=== PATIENT | male | born 1985 | race Caucasian/White ===

== ENCOUNTER 2018-01-20 18:02 | Emergency (ER) | payer SELFPAY ==
[2018-01-20 18:51] LABS: APPEARANCE,URINE CLEAR; BILIRUBIN,URINE NEGATIVE (NEGATIVE); COLOR,URINE YELLOW; GLUCOSE, URINE NEGATIVE (NEGATIVE); KETONES,URINE NEGATIVE (NEGATIVE); LEUKOCYTE ESTERASE,URINE NEGATIVE (NEGATIVE); NITRITE,URINE NEGATIVE (NEGATIVE); PROTEIN,URINE NEGATIVE (NEGATIVE); URINE SPECIFIC GRAVITY 1.024; UROBILINOGEN,URINE NEGATIVE mg/dL (<2.0)
[2018-01-20 19:05] LABS: URINE AMPHETAMINES SCREEN NEGATIVE; URINE BARBITURATES SCREEN NEGATIVE; URINE BENZODIAZEPINES SCREEN NEGATIVE; URINE COCAINE SCREEN NEGATIVE; URINE MARIJUANA (THC) SCREEN UNCONFIRMED POSITIVE; URINE METHADONE SCREEN NEGATIVE; URINE PHENCYCLIDINE SCREEN NEGATIVE
[2018-01-20 19:26] LABS: ABSOLUTE MONOCYTES (AUTO) 0.7 10^3/uL (0.1-1.4); ABSOLUTE NEUT (AUTO) 4.9 10^3/uL (1.7-8.2); BASOPHILS % (AUTO) 0.3 % (0-2); EOSINOPHILS % (AUTO) 0.3 % (0-6); HEMOGLOBIN 15.1 g/dL (13.5-17.0); LYMPHOCYTES % (AUTO) 25.7 % (13-45); MEAN CORPUSCULAR HEMOGLOBIN 32.8 pg (27.0-33.4); MEAN CORPUSCULAR HGB CONC 35.2 g/dL (32.0-36.0); MEAN CORPUSCULAR VOLUME 93 fl (80-97); MONOCYTES % (AUTO) 9.6 % (3-13); PLATELET COUNT 212 10^3/uL (150-450); RED BLOOD COUNT 4.62 10^6/uL (4.35-5.55); RED CELL DISTRIBUTION WIDTH 12.7 % (11.5-14.0); SEGMENTED NEUTROPHILS % (AUTO) 64.1 % (42-78); TOTAL CELLS COUNTED % (AUTO) 100 %; WHITE BLOOD COUNT 7.6 10^3/uL (4.0-10.5)
[2018-01-20 19:53] LABS: ALANINE AMINOTRANSFERASE 28 U/L (21-72); ALBUMIN 4.6 g/dL (3.5-5.0); ALKALINE PHOSPHATASE 64 U/L (38-126); ANION GAP 14 (5-19); ASPARTATE AMINO TRANSFERASE 15 U/L (17-59); BILIRUBIN,DIRECT 0.1 mg/dL (0.0-0.4); BILIRUBIN,TOTAL 0.7 mg/dL (0.2-1.3); BLOOD UREA NITROGEN 13 mg/dL (7-20); CALCIUM 9.5 mg/dL (8.4-10.2); CARBON DIOXIDE 24 mmol/L (22-30); CHLORIDE 105 mmol/L (98-107); GLUCOSE 98 mg/dL (75-110); POTASSIUM 3.9 mmol/L (3.6-5.0); SODIUM 143.3 mmol/L (137-145); TOTAL PROTEIN 7.3 g/dL (6.3-8.2)
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
[2018-01-20 19:55] LABS: ACETAMINOPHEN < 10 ug/mL (10-30); ALCOHOL < 10 mg/dL (NONE DETECTED); SALICYLATE < 1.0 mg/dL (2.0-20.0)
[2018-01-20] MEDS ORDERED: OLANZAPINE 5 MG TAB.RAPDIS PO ONE (21:33)
--- NOTE | 2018-01-21 07:18 | EKG REPORT ---
SEVERITY:- NORMAL ECG - SINUS RHYTHM : Confirmed by: Maury Galindo MD 21-Jan-2018 07:18:05
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
[2018-01-21] MEDS ORDERED: OLANZAPINE 5 MG TABLET PO ONE (12:11)
[2018-01-21] MEDS ORDERED: BENZTROPINE MESYLATE 1 MG TABLET PO ONE (12:12)
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
[2018-01-21 16:46] VITALS: BP 113/67
== END 2018-01-21 16:47 | disposition home or self-care (01) ==
LOC: ER 18:02
DX: R45.851 Suicidal ideations (principal); F41.9 Anxiety disorder, unspecified; Z63.0 Problems in relationship with spouse or partner; F17.200 Nicotine dependence, unspecified, uncomplicated; F12.10 Cannabis abuse, uncomplicated
CPT/HCPCS: 93005; 99285; 36415; 80307 ×4; 85025; 80053; 81001; 93010; J3490

== ENCOUNTER 2018-01-23 21:18 | Emergency (ER) | payer OTHER ==
[2018-01-23 22:32] LABS: ABSOLUTE BASOPHILS # (AUTO) 0.1 10^3/uL (0.0-0.2); ABSOLUTE EOSINOPHILS # (AUTO) 0.1 10^3/uL (0.0-0.6); ABSOLUTE LYMPHOCYTES (AUTO) 2.8 10^3/uL (0.5-4.7); ABSOLUTE NEUT (AUTO) 2.9 10^3/uL (1.7-8.2); BASOPHILS % (AUTO) 0.9 % (0-2); EOSINOPHILS % (AUTO) 0.9 % (0-6); HEMATOCRIT 41.1 % (37.9-51.0); HEMOGLOBIN 14.6 g/dL (13.5-17.0); LYMPHOCYTES % (AUTO) 41.1 % (13-45); MEAN CORPUSCULAR HEMOGLOBIN 32.9 pg (27.0-33.4); MEAN CORPUSCULAR HGB CONC 35.6 g/dL (32.0-36.0); MEAN CORPUSCULAR VOLUME 92 fl (80-97); MONOCYTES % (AUTO) 14.3 % (3-13); PLATELET COUNT 197 10^3/uL (150-450); RED BLOOD COUNT 4.45 10^6/uL (4.35-5.55); RED CELL DISTRIBUTION WIDTH 12.8 % (11.5-14.0); SEGMENTED NEUTROPHILS % (AUTO) 42.8 % (42-78); TOTAL CELLS COUNTED % (AUTO) 100 %; WHITE BLOOD COUNT 6.7 10^3/uL (4.0-10.5)
[2018-01-23 22:53] LABS: ALANINE AMINOTRANSFERASE 32 U/L (21-72); ALBUMIN 4.6 g/dL (3.5-5.0); ALKALINE PHOSPHATASE 60 U/L (38-126); ANION GAP 12 (5-19); ASPARTATE AMINO TRANSFERASE 47 U/L (17-59); BILIRUBIN,DIRECT 0.1 mg/dL (0.0-0.4); BILIRUBIN,TOTAL 0.9 mg/dL (0.2-1.3); BLOOD UREA NITROGEN 15 mg/dL (7-20); CALCIUM 9.7 mg/dL (8.4-10.2); CARBON DIOXIDE 26 mmol/L (22-30); CHLORIDE 107 mmol/L (98-107); GLUCOSE 91 mg/dL (75-110); POTASSIUM 4.5 mmol/L (3.6-5.0); SODIUM 144.6 mmol/L (137-145); TOTAL PROTEIN 7.1 g/dL (6.3-8.2)
[2018-01-23 22:54] LABS: ACETAMINOPHEN < 10 ug/mL (10-30); ALCOHOL < 10 mg/dL (NONE DETECTED); SALICYLATE < 1.0 mg/dL (2.0-20.0)
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
[2018-01-24] MEDS ORDERED: OLANZAPINE 5 MG TAB.RAPDIS PO ONE (10:03)
--- NOTE | 2018-01-24 11:13 | ER Document Report ---
Doctor's Note Notes: 01/24/18 11:04 Mr. Nguyễn is a 32-year-old man who presented for evaluation of difficult home situation. The plan is for this man to undergo discharge home as his significant other is no longer in his home. Because of this he will also need a week's prescription as his has them currently Zyprexa and Cogentin. We will plan for discharge as scheduled previously by the previous provider. He will be given a prescription for medication for 1 week. He was encouraged to return in case of worsening fears for safety or desires to self injure. 01/25/18 08:46 Discharge - Discharge Clinical Impression: Anxiety, Relationship dysfunction Condition: Stable Disposition: HOME, SELF-CARE Additional Instructions: Please return if you have thoughts of wanting to hurt yourself, hurt others, or have any other symptoms that are concerning to you. You were seen in the ED and evaluated by the Medical and Behavioral Health Teams for relationship discord and determined to be appropriate for discharge at this time. You are recommended to follow up with the local [facility] for continued assistance with therapy and medication management. Anxiety The physician feels that some of your health problems are being caused by anxiety. Anxiety affects your health in many ways. Anxiety alone can cause palpitations, sweats, chest pains, abdominal pains, shortness of breath, and headaches. It contributes to ulcer disease, high blood pressure, irritable bowel syndrome, and has been shown to cause flare-ups of many other diseases. Anxiety is not a simple disorder to treat. If the anxiety is due to recent life stresses, you may simply need time to "work through" the changes. If the anxiety is due to an underlying unhappiness with yourself or due to psychiatric disturbance, professional help will be needed. Your physician can refer you for further help if needed. Anti-anxiety medication is occasionally given if the stress is acute or if you are having trouble sleeping. Chronic or frequent use of these medications is not a good idea because the body becomes reliant on it, preventing you from dealing with life's normal stresses. Prescriptions: Benztropine Mesylate [Cogentin 1 mg Tablet] 1 mg PO DAILY #7 tablet Olanzapine [Zyprexa 5 mg Tablet] 5 mg PO Q12 #14 tablet
[2018-01-24 11:19] VITALS: BP 134/79
--- NOTE | 2018-01-26 18:23 | PSYCHOLOGICAL NOTE ---
Psych Note - Psych Note Psych Note: Reason for Consult: relationship dysfunction Patient states that he fears for his life because of what "his might tell other people about him". Patient admits that his relationship is in discord but that his has been out of the home for the last 3 days. There has been no new event within that last 24 hours of being previously assessed by the physician and Dr. Joel. Patient denied any plans of suicide, with no intent, plan or means. Patient is non-compliant with his medication, as he did not get his prescriptions filled from the last visit. Patient is alert and oriented to person, place, time and circumstance. Mood is Dysphoric. Patient has an organized and linear thought process. Eye Contact was maintained throughout the assessment. Conversational speech was within normal rate, tone and prosody. Intellectual abilities appear to be within the average range. Attention and concentration are good. Insight, judgment, impulse control are fair. Medication recommendations per [facility]'s contracted psychiatrist , Dr. Halle TUTTLE are as follows: Zyprexa 5mg twice daily Cogentin 1mg daily Diagnosis: 296.41 (F31.11) Bipolar I Disorder, Mild 301.83 (F60.3) Borderline Personality Impression/Plan: Patient is cleared from acute psychiatric services. Patient is not compliant with his medications from last visit. This Clinician provided resource list, as well as number to the local homeless long term. Patient confirmed that no new event had occurred during this hospitalization. Patient states that his has not been home for the last three days. This Clinician encouraged patient to follow up with his outpatient provider and to let them know about this visit.
== END 2018-01-24 11:35 | disposition home or self-care (01) ==
LOC: ER 21:18
DX: F41.9 Anxiety disorder, unspecified (principal); F12.10 Cannabis abuse, uncomplicated; Z63.0 Problems in relationship with spouse or partner; F32.9 Major depressive disorder, single episode, unspecified; Z79.899 Other long term (current) drug therapy
CPT/HCPCS: 99284; 36415; 80307 ×3; 85025; 80053; J3490

== ENCOUNTER 2019-02-20 00:39 | Emergency (ER) | payer OTHER ==
[2019-02-20 02:11] LABS: ABSOLUTE EOSINOPHILS # (AUTO) 0.1 10^3/uL (0.0-0.6); ABSOLUTE LYMPHOCYTES (AUTO) 3.5 10^3/uL (0.5-4.7); ABSOLUTE NEUT (AUTO) 4.9 10^3/uL (1.7-8.2); BASOPHILS % (AUTO) 0.4 % (0-2); EOSINOPHILS % (AUTO) 0.6 % (0-6); HEMATOCRIT 40.5 % (37.9-51.0); HEMOGLOBIN 14.5 g/dL (13.5-17.0); LYMPHOCYTES % (AUTO) 37.3 % (13-45); MEAN CORPUSCULAR HEMOGLOBIN 32.8 pg (27.0-33.4); MEAN CORPUSCULAR HGB CONC 35.8 g/dL (32.0-36.0); MEAN CORPUSCULAR VOLUME 92 fl (80-97); MONOCYTES % (AUTO) 10.6 % (3-13); PLATELET COUNT 196 10^3/uL (150-450); RED BLOOD COUNT 4.42 10^6/uL (4.35-5.55); RED CELL DISTRIBUTION WIDTH 12.7 % (11.5-14.0); SEGMENTED NEUTROPHILS % (AUTO) 51.1 % (42-78); TOTAL CELLS COUNTED % (AUTO) 100 %; WHITE BLOOD COUNT 9.5 10^3/uL (4.0-10.5)
[2019-02-20 02:18] LABS: ACETAMINOPHEN < 10 ug/mL (10-30); ALBUMIN 4.7 g/dL (3.5-5.0); ALCOHOL < 10 mg/dL (NONE DETECTED); ALKALINE PHOSPHATASE 61 U/L (38-126); ANION GAP 10 (5-19); ASPARTATE AMINO TRANSFERASE 20 U/L (17-59); BILIRUBIN,TOTAL 0.9 mg/dL (0.2-1.3); BLOOD UREA NITROGEN 13 mg/dL (7-20); CALCIUM 9.8 mg/dL (8.4-10.2); CARBON DIOXIDE 25 mmol/L (22-30); CHLORIDE 105 mmol/L (98-107); GLUCOSE 104 mg/dL (75-110); POTASSIUM 3.9 mmol/L (3.6-5.0); SALICYLATE < 1.0 mg/dL (2.0-20.0); TOTAL PROTEIN 7.1 g/dL (6.3-8.2)
--- NOTE | 2019-02-20 04:19 | ER Document Report ---
ED Psych Disorder / Suicide - General Chief Complaint: Psych Problem Stated Complaint: IVC Time Seen by Provider: 02/20/19 01:25 Information source: Patient, Law Enforcement Notes: 33-year-old male brought in by IVC from mobile crisis. Police brought the patient in. He was taken to [facility] earlier and they felt he was too acute to be seen in the right away. Patient is delusional. He thinks there is a conspiracy. He wants to report stuff to the [facility]. Patient has a history of PTSD denies ever being in a mental institution before. Denies suicidal ideation homicidal ideation at this time. He is having a hard time describing his difficulties tonight. Is very tangential speech. TRAVEL OUTSIDE OF THE [place] IN LAST 30 DAYS: No - Related Data Allergies/Adverse Reactions: No Known Allergies Allergy (Unverified 12/11/15 20:32) Past Medical History - Social History Smoking Status: Never Smoker Drug Abuse: Marijuana Lives with: Spouse/Significant other Family History: Reviewed & Not Pertinent Patient has suicidal ideation: No Patient has homicidal ideation: No Renal/ Medical History: Denies: Hx Peritoneal Dialysis Psychiatric Medical History: Reports: Hx Depression, Hx Post Traumatic Stress Disorder Review of Systems - Review of Systems Neurological/Psychological: Anxiety. denies: Hallucinations, Suicidal ideation -: Yes All other systems reviewed and negative Physical Exam - Vital signs Vitals: Temp Pulse Resp BP Pulse Ox 97.9 F 62 18 128/72 H 99 02/20/19 00:41 02/20/19 00:41 02/20/19 00:41 02/20/19 00:41 02/20/19 00:41 - Notes Notes: PHYSICAL EXAMINATION: GENERAL: Well-appearing, well-nourished and in no acute distress. HEAD: Atraumatic, normocephalic. EYES: Pupils equal round and reactive to light, extraocular movements intact, sclera anicteric, conjunctiva are normal. ENT: nares patent, oropharynx clear without exudates. Moist mucous membranes. NECK: Normal range of motion, supple without lymphadenopathy LUNGS: Breath sounds clear to auscultation bilaterally and equal. No wheezes rales or rhonchi. HEART: Regular rate and rhythm without murmurs ABDOMEN: Soft, nontender, normoactive bowel sounds. No guarding, no rebound. No masses appreciated. EXTREMITIES: Normal range of motion, no pitting or edema. No cyanosis. NEUROLOGICAL: No focal neurological deficits. Moves all extremities spontaneously and on command. PSYCH: Anxious affect. Flat. Rambling speech tangential speech having a hard time staying focused on the conversation. He is having paranoid thoughts. Denies SI or HI SKIN: Warm, Dry, normal turgor, no rashes or lesions noted. Course - Re-evaluation Re-evalutation: 02/20/19 04:16 Patient resting comfortably. He is sleeping. Labs been reviewed he is hemodynamically stable he is cleared for psychiatric evaluation and treatment. - Vital Signs Vital signs: Temp Pulse Resp BP Pulse Ox 97.9 F 67 20 121/72 100 02/20/19 02:00 02/20/19 02:00 02/20/19 02:00 02/20/19 02:00 02/20/19 02:00 - Laboratory Result Diagrams: 02/20/19 01:50 02/20/19 01:50 Laboratory results interpreted by me: 02/20/19 01:50 Salicylates < 1.0 L Acetaminophen < 10 L - EKG Interpretation by Dc EKG shows normal: Sinus rhythm Rate: Normal Rhythm: NSR Discharge - Discharge Clinical Impression: Psychosis Condition: Stable Disposition: PSYCH HOSP/UNIT
[2019-02-20 06:47] LABS: APPEARANCE,URINE CLEAR; BILIRUBIN,URINE NEGATIVE (NEGATIVE); COLOR,URINE YELLOW; GLUCOSE, URINE NEGATIVE (NEGATIVE); KETONES,URINE TRACE mg/dL (NEGATIVE); LEUKOCYTE ESTERASE,URINE NEGATIVE (NEGATIVE); NITRITE,URINE NEGATIVE (NEGATIVE); PROTEIN,URINE NEGATIVE (NEGATIVE)
[2019-02-20 07:02] LABS: URINE AMPHETAMINES SCREEN NEGATIVE; URINE BARBITURATES SCREEN NEGATIVE; URINE BENZODIAZEPINES SCREEN NEGATIVE; URINE COCAINE SCREEN NEGATIVE; URINE MARIJUANA (THC) SCREEN UNCONFIRMED POSITIVE; URINE METHADONE SCREEN NEGATIVE; URINE PHENCYCLIDINE SCREEN NEGATIVE
--- NOTE | 2019-02-20 09:24 | ER Document Report ---
Doctor's Note Notes: 02/20/19 09:24 33-year-old male with past medical history of PTSD who supposedly presented delusional. Vital signs and labs as recorded. Awaiting psychiatric evaluation and placement. They are [facility] Vital signs are stable.
[2019-02-20] MEDS: BENZTROPINE MESYLATE 1 MG TABLET PO SCH (12:49)
[2019-02-20] MEDS: OLANZAPINE 5 MG TABLET PO SCH ×2 (12:49→18:05)
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
--- NOTE | 2019-02-20 19:46 | EKG REPORT ---
SEVERITY:- NORMAL ECG - SINUS RHYTHM : Confirmed by: Jaylene Holt MD 20-Feb-2019 19:45:47
--- NOTE | 2019-02-21 09:18 | ER Document Report ---
Doctor's Note Notes: 02/21/19 09:17 Vital signs are stable. Labs as recorded. Patient is still having what appears to be roberto carlos/paranoid delusions. Zyprexa was started yesterday. Awaiting psychiatric disposition.
[2019-02-21] MEDS: OLANZAPINE 5 MG TABLET PO SCH ×2 (10:12→18:24)
[2019-02-21] MEDS: BENZTROPINE MESYLATE 1 MG TABLET PO SCH (10:12)
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
[2019-02-22] MEDS: BENZTROPINE MESYLATE 1 MG TABLET PO SCH (09:54)
[2019-02-22] MEDS: OLANZAPINE 5 MG TABLET PO SCH ×2 (09:54→17:12)
--- NOTE | 2019-02-22 13:13 | ER Document Report ---
Doctor's Note Notes: 02/22/19 13:08 Rounds: Chart reviewed and patient interviewed. Patient initially evaluated for delusions and paranoid feelings. History of PTSD. Also bipolar disorder. Vital signs are all normal. Labs are positive for marijuana. Patient is paranoid at this time and confrontational as well. Has written up along list of issues and upset that I am not going to take time to read them. Otherwise, patient appears to be medically stable for transfer or discharge. Mary Ellen Mora MD
--- NOTE | 2019-02-23 08:49 | PSYCHOLOGICAL NOTE ---
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 Today ED Physician reported patient became irritable and agitated with him to the extent of verbal aggression and it was felt the trigger was related to physician not wanting to hear about the delusion so patient saying it's likely because physician is involved in the conspiracy. Diagnosis: Psychosis Posttraumatic Stress Disorder by Hx Borderline Personality Disorder by Hx Impression/Plan: Recommendation to maintain IVC due to continued to delusions that reportedly resurfaced a few days ago after 4-5 years. Today he presented irritable and agitated, was verbally aggressive toward ED Physician for not listening to story/delusion and said physician didn't want to listen because he might be involved in the conspiracy. Consulted with Dr. Joel regarding the management and care of patient. ED physician in agreement with recommendations.
[2019-02-23] MEDS: OLANZAPINE 5 MG TABLET PO SCH ×2 (09:15→18:04)
[2019-02-23] MEDS: BENZTROPINE MESYLATE 1 MG TABLET PO SCH (09:15)
--- NOTE | 2019-02-23 14:37 | PSYCHOLOGICAL NOTE ---
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 Patient eats meals when provided, takes medications when administered, he declined shower this AM. He remained in room in bed. Diagnosis: Psychosis Posttraumatic Stress Disorder by Hx Borderline Personality Disorder by Hx Impression/Plan: Recommendation to maintain IVC due to continued to delusions that reportedly resurfaced a few days ago after 4-5 years. Today he continued to be paranoid and delusional but remained in his room. Consulted with Dr. Joel regarding the management and care of patient. ED physician in agreement with recommendations.
--- NOTE | 2019-02-23 19:19 | ER Document Report ---
Doctor's Note Notes: 02/23/19 19:19 Rounds: Chart reviewed and patient interviewed. Not really much difference from yesterday. Still withdrawn and paranoid. Vital signs are all normal. Patient appears to be medically stable for transfer or discharge. Mary Ellen Mora MD
[2019-02-24] MEDS: OLANZAPINE 5 MG TABLET PO SCH ×2 (10:54→19:27)
[2019-02-24] MEDS: BENZTROPINE MESYLATE 1 MG TABLET PO SCH ×2 (10:54→19:26)
--- NOTE | 2019-02-24 11:00 | ER Document Report ---
Doctor's Note Notes: 02/24/19 10:59 Patient continues to have tangential thought process. Multiple medications change including adding Thorazine 50 mg twice daily, increasing Cogentin dose, confirm current Zyprexa dosing twice daily. Patient will remain IVC looking for placement.
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
[2019-02-24] MEDS: CHLORPROMAZINE HCL 50 MG TABLET PO SCH (19:27)
[2019-02-25] MEDS: BENZTROPINE MESYLATE 1 MG TABLET PO SCH ×2 (09:49→18:52)
[2019-02-25] MEDS: OLANZAPINE 5 MG TABLET PO SCH ×2 (09:49→19:32)
[2019-02-25] MEDS: CHLORPROMAZINE HCL 50 MG TABLET PO SCH ×2 (09:49→19:32)
--- NOTE | 2019-02-25 10:57 | ER Document Report ---
Doctor's Note Notes: 02/25/19 10:56 I have evaluated this pt. and he has no c/o at this time. He feels all of his needs are being met and his physical exam is normal. He is awaiting disposition per mental health.
--- NOTE | 2019-02-25 16:58 | PSYCHOLOGICAL NOTE ---
Psych Note - Psych Note Date seen by psych provider: 02/25/19 Psych Note: Updated medication recommendations per [facility] contracted psychiatrist Dr. Halle TUTTLE are as follows Discontinue Thorazine and Zyprexa Decrease Cogentin to 1 mg daily Please start Haldol 5 mg twice daily BuSpar 5 mg every morning 10 mg nightly risperidone 0.25 mg twice daily Diagnosis 295.70 (F25.0) schizoaffective disorder bipolar [facility] 309.81 (F43.10) posttraumatic stress disorder [facility] Cluster B personality traits are noted Impression\plan: Patient is recommended for continued IVC. Patient continues to is clearly demonstrating significant paranoia connected to his delusions. Patient's discloses that the patient had confided in him his delusions however it quickly spiraled out of control resulting in the patient then starting to believe that his was part of his delusion and threatened to kill him or himself if his did not leave the home. Updated medication recommendations have been provided. Patient will be reevaluated. Dr. Joel was consulted to care management of this patient; attending physicians in agreement with recommendations and disposition.
[2019-02-25] MEDS: BUSPIRONE HCL 10 MG TABLET PO SCH (19:04)
[2019-02-25] MEDS: HALOPERIDOL 5 MG TABLET PO SCH (19:04)
[2019-02-25] MEDS: RISPERIDONE 0.25 MG TABLET PO SCH (19:04)
[2019-02-26] MEDS: HALOPERIDOL 5 MG TABLET PO SCH ×2 (07:24→20:08)
[2019-02-26] MEDS: BUSPIRONE HCL 10 MG TABLET PO SCH ×2 (07:24→20:08)
[2019-02-26] MEDS: RISPERIDONE 0.25 MG TABLET PO SCH ×2 (07:24→20:08)
[2019-02-26] MEDS: BENZTROPINE MESYLATE 1 MG TABLET PO SCH (10:24)
--- NOTE | 2019-02-26 11:04 | ER Document Report ---
Doctor's Note Notes: 02/26/19 11:03 I have evaluated this pt. this am and he has no c/o at this time. He feels all of his needs are being met and his physical exam is normal. He is awaiting disposition per mental health.
[2019-02-27] MEDS: RISPERIDONE 0.25 MG TABLET PO SCH (08:24)
[2019-02-27] MEDS: HALOPERIDOL 5 MG TABLET PO SCH (08:25)
[2019-02-27] MEDS: BUSPIRONE HCL 10 MG TABLET PO SCH (08:25)
--- NOTE | 2019-02-27 10:24 | ER Document Report ---
Doctor's Note Notes: 02/27/19 10:23 Rounds: Chart reviewed and patient interviewed. Patient is being held for placement. Has been here since the , 1 week. Diagnosis of schizoaffective disorder. PTSD. Vital signs are all normal. Lab studies were all normal. Patient is not in any distress at this time, but still expresses paranoid tho ughts and aggravation that no one is paying any attention to the important information he had [place]. Patient appears to be medically stable for transfer or discharge. Mary Ellen Mora MD
[2019-02-27] MEDS: BENZTROPINE MESYLATE 1 MG TABLET PO SCH (10:31)
[2019-02-27 17:13] VITALS: BP 123/97
== END 2019-02-27 17:05 | disposition home or self-care (01) ==
LOC: ER 00:39
DX: F25.0 Schizoaffective disorder, bipolar type (principal); F12.10 Cannabis abuse, uncomplicated
CPT/HCPCS: 93005; 99285; 36415; 80307 ×4; 85025; 80053; 81001; 93010; J3490 ×5

== ENCOUNTER 2019-06-28 16:57 | Emergency (ER) | payer OTHER ==
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
[2019-06-28] MEDS ORDERED: NORMAL SALINE 1000 ML 1,000 ML IV ONE (17:38)
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
[2019-06-28] MEDS ORDERED: ONDANSETRON 4 MG TAB.RAPDIS PO ONE (18:21)
[2019-06-28 18:27] LABS: ABSOLUTE MONOCYTES (AUTO) 1.2 10^3/uL (0.1-1.4); ABSOLUTE NEUT (AUTO) 11.6 10^3/uL (1.7-8.2); BASOPHILS % (AUTO) 0.2 % (0-2); HEMATOCRIT 46.2 % (37.9-51.0); HEMOGLOBIN 16.1 g/dL (13.5-17.0); LYMPHOCYTES % (AUTO) 13.6 % (13-45); MEAN CORPUSCULAR HEMOGLOBIN 32.5 pg (27.0-33.4); MEAN CORPUSCULAR HGB CONC 34.9 g/dL (32.0-36.0); MEAN CORPUSCULAR VOLUME 93 fl (80-97); MONOCYTES % (AUTO) 8.3 % (3-13); PLATELET COUNT 239 10^3/uL (150-450); RED BLOOD COUNT 4.96 10^6/uL (4.35-5.55); RED CELL DISTRIBUTION WIDTH 12.6 % (11.5-14.0); SEGMENTED NEUTROPHILS % (AUTO) 77.9 % (42-78); TOTAL CELLS COUNTED % (AUTO) 100 %; WHITE BLOOD COUNT 14.9 10^3/uL (4.0-10.5)
[2019-06-28 18:44] LABS: ALBUMIN 5.2 g/dL (3.5-5.0); ALKALINE PHOSPHATASE 71 U/L (38-126); ANION GAP 12 (5-19); ASPARTATE AMINO TRANSFERASE 26 U/L (17-59); BLOOD UREA NITROGEN 18 mg/dL (7-20); CALCIUM 10.3 mg/dL (8.4-10.2); CARBON DIOXIDE 25 mmol/L (22-30); CHLORIDE 102 mmol/L (98-107); GLUCOSE 131 mg/dL (75-110); POTASSIUM 4.5 mmol/L (3.6-5.0); TOTAL PROTEIN 8.1 g/dL (6.3-8.2)
[2019-06-28 18:46] LABS: ACETAMINOPHEN < 10 ug/mL (10-30); ALCOHOL < 10 mg/dL (NONE DETECTED); SALICYLATE < 1.0 mg/dL (2.0-20.0)
[2019-06-28 18:53] LABS: APPEARANCE,URINE SLIGHTLY-CLOUDY; BILIRUBIN,URINE NEGATIVE (NEGATIVE); COLOR,URINE AMBER; GLUCOSE, URINE NEGATIVE (NEGATIVE); KETONES,URINE 20 mg/dL (NEGATIVE); LEUKOCYTE ESTERASE,URINE NEGATIVE (NEGATIVE); NITRITE,URINE NEGATIVE (NEGATIVE); PROTEIN,URINE 100 mg/dL (NEGATIVE); URINE SPECIFIC GRAVITY 1.026
[2019-06-28 19:05] LABS: URINE AMPHETAMINES SCREEN NEGATIVE; URINE BARBITURATES SCREEN NEGATIVE; URINE BENZODIAZEPINES SCREEN NEGATIVE; URINE COCAINE SCREEN NEGATIVE; URINE METHADONE SCREEN NEGATIVE; URINE PHENCYCLIDINE SCREEN NEGATIVE
[2019-06-28 19:06] LABS: URINE MARIJUANA (THC) SCREEN UNCONFIRMED POSITIVE
[2019-06-28] MEDS ORDERED: HALOPERIDOL 5 MG TABLET PO ONE (22:24)
--- NOTE | 2019-06-29 07:22 | EKG REPORT ---
SEVERITY:- BORDERLINE ECG - SINUS TACHYCARDIA WITH IRREGULAR RATE [id number] PROMINENT P WAVES, NONDIAGNOSTIC : Confirmed by: Maury Galindo MD 29-Jun-2019 07:22:20
--- NOTE | 2019-06-29 12:13 | ER Document Report ---
Doctor's Note Notes: 06/29/19 12:01 PHYSICAL EXAMINATION: GENERAL: Appears well, healthy, well-nourished, no acute distress. LUNGS: Equal breath sounds bilaterally and clear to auscultation. No wheezes rales or rhonchi. CARDIOVASCULAR: S1-S2, regular rate, regular rhythm. Radial pulses 2+, normal. ABDOMEN: Normoactive bowel sounds. Soft, nontender, no guarding, no rebound tenderness, and no masses palpated. PSYCH: Crying, tearful. Patient states that he is nervous about going home. Denies any suicidal or homicidal ideation. He is wondering what his future will entail. Patient was given information on counseling services by mental health. Patient has been cleared by mental health. Patient will follow-up with outpatient care. Follow- up precautions were given. Verbal discharge instructions were given to the patient. They verbalized understanding. They are stable for discharge.
[2019-06-29 12:19] VITALS: BP 103/60
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
== END 2019-06-29 12:14 | disposition home or self-care (01) ==
LOC: EEVIPCON 16:57 → ER 16:57
DX: R45.851 Suicidal ideations (principal); F29 Unspecified psychosis not due to a substance or known physiological condition; F43.10 Post-traumatic stress disorder, unspecified; F31.9 Bipolar disorder, unspecified; R11.2 Nausea with vomiting, unspecified
CPT/HCPCS: 36415; 80053; 80307; 81001; 85025; 93005; 93010; 99285